=== PATIENT | male | born 1985 | race Caucasian/White ===

== ENCOUNTER 2020-10-29 09:12 | Emergency (ER) | payer BC ==
[2020-10-29] MEDS ORDERED: Ketorolac 60 MG/2 ML SDV IM ONE (09:18)
[2020-10-29] MEDS ORDERED: Ondansetron 4 MG Tab.DIS PO ONE (09:19)
[2020-10-29 09:41] VITALS: BP 144/86; PULSE 63
[2020-10-29 09:53] LABS: CHLORIDE,CL 104 mmol/L (98-107); SODIUM,NA 139 mmol/L (136-145)
[2020-10-29] MEDS ORDERED: Tamsulosin 0.4 MG Cap.ER PO ONE (10:18)
--- NOTE | 2020-10-29 10:18 | EDM.PDOC ---
ED HPI GENERAL MEDICAL PROBLEM - General Chief Complaint: Flank Pain Stated Complaint: right flank pain Time Seen by Provider: 10/29/20 09:52 Source of Information: Reports: Patient History Limitations: Reports: No Limitations - History of Present Illness INITIAL COMMENTS - FREE TEXT/NARRATIVE: Sudden right flank pain around 0730 this am. Patient says it is different from his usual muscular back pain. Emesis at time of pain onset. No further emesis. No history of kidney stones. Does not feel constipated. No hematuria/dysuria/UTI complaints. No fevers. No other acute changes. Right Flank Pain Score (Numeric/FACES): 8 - Related Data Allergies Allergy/AdvReac Type Severity Reaction Status Date / Time No Known Allergies Allergy Verified 10/29/20 09:12 Home Meds: Home Meds Ibuprofen 2 - 3 tab PO Q6H PRN 10/29/20 [History] Ketorolac [Toradol] 10 mg PO Q6H PRN #20 tab 10/29/20 [Rx] Ondansetron [Zofran ODT] 4 mg PO Q6H PRN #15 tab.dis 10/29/20 [Rx] Tamsulosin [Tamsulosin 24 Hr] 0.4 mg PO DAILY #14 cap.er 10/29/20 [Rx] Past Medical History HEENT History: Reports: Other (See Below) Other HEENT History: broken tooth Musculoskeletal History: Reports: Back Pain, Chronic, Other (See Below) Other Musculoskeletal History: ruptured discs back Endocrine/Metabolic History: Reports: Obesity/BMI 30+ Social & Family History - Tobacco Use Tobacco Use Status *Q: Unknown Ever Used Tobacco - Recreational Drug Use Recreational Drug Use: No ED ROS GENERAL - Review of Systems Review Of Systems: See Below Constitutional: Reports: Decreased Appetite. Denies: Fever, Chills HEENT: Reports: No Symptoms Respiratory: Reports: No Symptoms Cardiovascular: Reports: No Symptoms GI/Abdominal: Reports: Abdominal Pain (right mid/lower abd), Decreased Appetite, Nausea, Vomiting. Denies: Black Stool, Bloody Stool, Constipation, Diarrhea, Difficulty Swallowing, Distension : Reports: Flank Pain Musculoskeletal: Reports: Back Pain (chronic/unchanged except for flank pain noted starting this morning) Neurological: Reports: No Symptoms Psychiatric: Reports: No Symptoms ED EXAM, GENERAL - Physical Exam Exam: See Below Exam Limited By: No Limitations General Appearance: Alert, WD/WN, No Apparent Distress Eye Exam: Bilateral Eye: EOMI, PERRL Ears: Hearing Grossly Normal Throat/Mouth: Normal Lips, Normal Voice, No Airway Compromise Head: Atraumatic, Normocephalic Neck: Supple Respiratory/Chest: No Respiratory Distress, Lungs Clear, Normal Breath Sounds, No Accessory Muscle Use Cardiovascular: Regular Rate, Rhythm, No Murmur GI/Abdominal: Normal Bowel Sounds, Soft, No Distention, Tender (mild tenderness right mid/lower abdomen). No: Guarding, Rigid, Rebound (Male) Exam: Deferred Rectal (Males) Exam: Deferred Back Exam: No: CVA Tenderness (L), CVA Tenderness (R), Muscle Spasm Extremities: Normal Capillary Refill Neurological: Alert, Oriented, Normal Cognition, Normal Gait Psychiatric: Normal Affect, Normal Mood Skin Exam: Warm, Dry, Intact, Normal Color Course - Vital Signs Last Recorded V/S: Last Vital Signs Temp 36.3 C 10/29/20 09:15 Pulse 63 10/29/20 09:15 Resp 18 10/29/20 09:15 BP 144/86 H 10/29/20 09:15 Pulse Ox 97 10/29/20 09:15 - Orders/Labs/Meds Orders: Active Orders 24 hr Category Date Time Status Abdomen 2V AP Flat Upright [CR] Stat Exams 10/29/20 10:10 Taken Sodium Chloride 0.9% [Saline Flush] Med 10/29/20 11:02 Active 10 ml FLUSH ASDIRECTED PRN Saline Lock Insert [OM.PC] Routine Oth 10/29/20 11:02 Ordered Medication Orders Sodium Chloride (Saline Flush) 10 ml FLUSH ASDIRECTED PRN PRN Reason: Keep Vein Open Labs: Laboratory Tests 10/29/20 10/29/20 10/29/20 Range/Units 09:19 09:30 09:30 WBC 7.6 (4.0-10.2) K/uL RBC 4.87 (4.33-5.41) M/uL Hgb 14.3 (13.1-16.8) g/dL Hct 43.2 (39.0-49.0) % MCV 88.7 (84.0-98.0) fL MCH 29.4 (28.2-33.3) pg MCHC 33.1 (31.7-36.0) g/dL RDW 13.0 (11.2-14.1) % Plt Count 238 (150-350) K/uL Neut % (Auto) 58.2 (45.0-80.0) % Lymph % (Auto) 30.4 (10.0-50.0) % [place] % (Auto) 8.7 (2.0-14.0) % Eos % (Auto) 2.4 (0.0-5.0) % Baso % (Auto) 0.3 (0.0-2.0) % Neut # (Auto) 4.40 (1.40-7.00) K/uL Lymph # (Auto) 2.30 (0.50-3.50) K/uL [place] # (Auto) 0.66 (0.00-1.00) K/uL Eos # (Auto) 0.18 (0.00-0.50) K/uL Baso # (Auto) 0.02 (0.00-0.20) K/uL Sodium 139 (136-145) mmol/L Potassium 4.4 (3.5-5.1) mmol/L Chloride 104 (98-107) mmol/L Carbon Dioxide 25.5 (21.0-32.0) mmol/L BUN 15 (7-18) mg/dL Creatinine 1.06 (0.51-1.17) mg/dL Est Cr Clr Drug Dosing 120.56 mL/min Estimated GFR (MDRD) > 60 mL/min Glucose 106 (74-106) mg/dL Calcium 8.9 (8.5-10.1) mg/dL Total Bilirubin 0.4 (0.2-1.0) mg/dL AST 21 (15-37) U/L ALT 54 (12-78) U/L Alkaline Phosphatase 79 (46-116) IU/L Total Protein 7.6 (6.4-8.2) g/dL Albumin 3.9 (3.4-5.0) g/dL Specimen Type Urinvoid Urine Color Yellow Urine Appearance Slightly cloudy Urine pH 5.5 (5.0-9.0) Ur Specific [place] >= 1.030 (1.005-1.030) Urine Protein 100 H (NEGATIVE) mg/dL Urine Glucose (UA) Negative (NEGATIVE) mg/dL Urine Ketones Trace H (NEGATIVE) mg/dL Urine Occult Blood Large H (NEGATIVE) Urine Nitrite Negative (NEGATIVE) Urine Bilirubin Small H (NEGATIVE) Urine Urobilinogen 0.2 (0.2-1.0) E.U./dL Ur Leukocyte Esterase Negative (NEGATIVE) Urine RBC >100 H /HPF Urine WBC Not seen /HPF Ur Epithelial Cells Rare /LPF Urine Bacteria Few (NONE TO FEW) /HPF Meds: Medications Generic Name Dose Route Start Last Admin Trade Name Freq PRN Reason Stop Dose Admin Sodium Chloride 10 ml 10/29/20 11:02 Saline Flush FLUSH ASDIRECTED PRN Keep Vein Open Discontinued Medications Generic Name Dose Route Start Last Admin Trade Name Freq PRN Reason Stop Dose Admin Sodium Chloride 1,000 mls @ 999 mls/hr 10/29/20 11:02 10/29/20 11:55 Normal Saline IV 10/29/20 12:02 999 mls/hr .BOLUS ONE Administration Ketorolac Tromethamine 60 mg 10/29/20 09:18 10/29/20 09:26 Toradol IM 10/29/20 09:19 60 mg ONETIME ONE Administration Ondansetron HCl 4 mg 10/29/20 09:19 10/29/20 09:26 Zofran Odt PO 10/29/20 09:20 4 mg ONETIME ONE Administration Tamsulosin HCl 0.4 mg 10/29/20 10:18 10/29/20 10:34 Flomax PO 10/29/20 10:19 0.4 mg ONETIME ONE Administration - Re-Assessments/Exams Free Text/Narrative Re-Assessment/Exam: 10/29/20 10:18 Patient received IM Toradol along with Zofran shortly after arrival. [place] improved. Normal CBC/Chem. Suspect kidney stone based on history/presentation. Patient preferred to avoid CT for now but was ok with presumptive treatment for kidney stone and basic abdominal films. Lucency right lower quadrant supports stone hypothesis. 10/29/20 11:19 IV NS bolus and Flomax given. Current plan is to discharge patient home with Rx for Flomax/Toradol/Zofran and have him observe for passage of stone. Precautions reviewed. Patient to return of symptoms worsen and can consider CT scan at that time for better evaluation to rule in/out kidney stone, appendicitis, etc. Patient comfortable with plan. To get re-evaluated in 2-3 days if symptoms persist/no resolution. Departure - Departure Time of Disposition: 13:30 Disposition: Home, Self-Care 01 Condition: Good Clinical Impression: Acute abdominal pain in right flank - Discharge Information *PRESCRIPTION DRUG MONITORING PROGRAM REVIEWED*: Not Applicable *COPY OF PRESCRIPTION DRUG MONITORING REPORT IN PATIENT KEYUR: Not Applicable Prescriptions: Tamsulosin [Tamsulosin 24 Hr] 0.4 mg PO DAILY #14 cap.er Ketorolac [Toradol] 10 mg PO Q6H PRN #20 tab PRN Reason: Pain Ondansetron [Zofran ODT] 4 mg PO Q6H PRN #15 tab.dis PRN Reason: Nausea Instructions: Kidney Stones, [id number], Abdominal Pain, Adult, [id number] Referrals: PCP,None [Primary Care Provider] - Forms: ED Department Discharge Additional Instructions: Observe carefully for new symptoms/symptom changes. Strain urine and see if you can collect the stone. If pain continues past 72 hours get rechecked. If you have sudden worsening symptoms/fevers please return for re-evaluation. Can consider CT scan as discussed to look more closely for kidney stone/appendicitis/other possible causes of pain. Take Toradol one tab every 6 hours while you are waiting for passage of stone. It is best to stay ahead of potential pain in this case. No ibuprofen or naproxen while taking Toradol as it can cause stomach pain/ulcers. OK to take Tylenol with it. Take Zofran and dissolve under tongue once every 6 hours for nausea. The Flomax is to help you pass the suspected stone. Call if you have any questions. Look at adopting anti-inflammatory and ancestral diet as discussed for improved wellness. Good shake mixes include Ample, KetoChow. Start taking your own food to work. Good reference books include [employer], It Starts with Food, and What the Heck Can I Eat/Cook.. Sepsis Event Note (ED) - Evaluation Sepsis Screening Result: No Definite Risk - Focused Exam Vital Signs: Vital Signs Temp Pulse Resp BP Pulse Ox 10/29/20 09:15 36.3 C 63 18 144/86 H 97 - My Orders Last 24 Hours: My Active Orders 10/29/20 10:10 Abdomen 2V AP Flat Upright [CR] Stat 10/29/20 11:02 Sodium Chloride 0.9% [Saline Flush] 10 ml FLUSH ASDIRECTED PRN Saline Lock Insert [OM.PC] Routine - Assessment/Plan Last 24 Hours: My Active Orders 10/29/20 10:10 Abdomen 2V AP Flat Upright [CR] Stat 10/29/20 11:02 Sodium Chloride 0.9% [Saline Flush] 10 ml FLUSH ASDIRECTED PRN Saline Lock Insert [OM.PC] Routine
[2020-10-29] MEDS ORDERED: Sodium Chloride 0.9% 10 ML Syringe FLUSH PRN (11:02)
[2020-10-29] MEDS ORDERED: Sodium Chloride 0.9% 1,000 ML IV ONE (11:02)
== END 2020-10-29 13:20 | disposition home or self-care (01) ==
LOC: LL.ED 09:12
DX: R10.9 Unspecified abdominal pain (principal); R11.2 Nausea with vomiting, unspecified; E66.9 Obesity, unspecified; Z68.38 Body mass index [BMI] 38.0-38.9, adult
CPT/HCPCS: 36415; 74019; 80053; 81001; 85025; 96372; 99284-25; A9270-GY; J1885; J7030